=== PATIENT | female | born 1970 | race Hispanic/Latino ===

== ENCOUNTER 2019-03-12 19:39 | Emergency (ER) | payer OTHER ==
--- OUTSIDE RECORDS SUMMARY | 2019-03-12 19:41 | XMS REPORT ---
:1970 [facility] Address [address] [place] [address] Care Team Providers Name Role Phone CARIN GONZALEZ Unavailable Unavailable Problems This patient has no known problems. Allergies, Adverse Reactions, Alerts This patient has no known allergies or adverse reactions. Medications This patient has no known medications. Results Test Description Test Time Test Comments Text Results Atomic Results Result Comments GLUCOMETER GLUCOSE- LAB USE ONLY 2017-03-16 09:37:00 Test Item Value Reference Range Comments GLUCOMETER (test code=GMG) 112 mg/dL 70-100 XR RENZO W CONTRAST*HSE*2017-03-14 13:37:49FluoroscopyLocation Code: [id number] HISTORY: Back painComments: Fluoroscopy was provided during lumbar epidural steroid injection.Approximately fluoroscopy time was 22.3 seconds. 1 images were obtained.IMPRESSION: Fluoroscopy services provided. Please see operative report for fulldetails.XR RENZO W CONTRAST*HSE*2017-02-23 12:12: 37FluoroscopyLocation Code: [id number] HISTORY: Back painComments: Fluoroscopy was provided during L4 and L5 interlaminar epiduralsteroid injection. Approximately fluoroscopy time was 3.5 seconds. 1 imageswere obtained.IMPRESSION : Fluoroscopy services provided. Please see operative report for fulldetails.
--- NOTE | 2019-03-12 20:17 | EDPHYS ---
Physician Documentation [facility] Name: Hazel Ling Age: 49 yrs Sex: Female : 1970 Arrival Date: 03/12/2019 Time: 19:42 Bed 28 Private MD: Ariel Bardales ED Physician Alberto Syed HPI: 03/12 21:02 This 49 yrs old Female presents to ER via Ambulatory with complaints of Back snw Pain. 21:02 The patient presents with pain that is chronic, with no known mechanism of injury. The snw symptoms are located in the low back. Onset: The symptoms/episode began/occurred gradually, and became worse and became persistent. The pain radiates to the buttocks. The problem was sustained insurance changes and pt did not get T#3 rx. Severity of symptoms: At their worst the symptoms were moderate. The patient has experienced similar episodes in the past, chronically. It is unknown whether or not the patient has recently seen a physician. c/o lower back tightness and spasm. 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 LMP N/A - Hysterectomy lp1 Historical: - Allergies: 20:04 No Known Allergies; lp1 - Home Meds: 20:04 metformin 1,000 mg Oral tab 1 tab 2 times per day [Active]; glimepiride 4 mg Oral tab 1 lp1 tab once daily [Active]; gabapentin 800 mg oral tab 1 tab 3 times per day [Active]; naproxen 500 mg Oral tab 1 tab 2 times per day [Active]; Cymbalta 30 mg oral cpDR 1 cap 2 times per day [Active]; acetaminophen-codeine 300-30 mg Oral tab [Active]; losartan 25 mg oral tab 1 tab once daily [Active]; Symbicort 80-4.5 mcg/actuation inhalation HFAA [Active]; - PMHx: 20:04 Diabetes - IDDM; Asthma; Back pain; Hypertension; lp1 - PSHx: 20:04 ; Tonsillectomy; Cholecystectomy; foot surgery; Hysterectomy; lp1 - Immunization history:: Adult Immunizations up to date. - Social history:: Smoking status: Patient/guardian denies using tobacco. - Ebola Screening: : No symptoms or risks identified at this time. ROS: 21:01 Constitutional: Negative for fever, chills, and weight loss, Eyes: Negative for injury, snw pain, redness, and discharge, ENT: Negative for injury, pain, and discharge, Neck: Negative for injury, pain, and swelling, Cardiovascular: Negative for chest pain, palpitations, and edema, Respiratory: Negative for shortness of breath, cough, wheezing, and pleuritic chest pain, Abdomen/GI: Negative for abdominal pain, nausea, vomiting, diarrhea, and constipation, : Negative for injury, bleeding, discharge, and swelling, MS/Extremity: Negative for injury and deformity, Skin: Negative for injury, rash, and discoloration, Neuro: Negative for headache, weakness, numbness, tingling, and seizure. 21:01 Back: Positive for decreased range of motion, pain with movement, radiated pain, of the low back area, lower extremities with shooting pain, denies difficulty urinating. Exam: 21:00 Constitutional: This is a well developed, well nourished patient who is awake, alert, snw and in no acute distress. Head/Face: Normocephalic, atraumatic. Eyes: Pupils equal round and reactive to light, extra-ocular motions intact. Lids and lashes normal. Conjunctiva and sclera are non-icteric and not injected. Cornea within normal limits. Periorbital areas with no swelling, redness, or edema. ENT: Nares patent. No nasal discharge, no septal abnormalities noted. Tympanic membranes are normal and external auditory canals are clear. Oropharynx with no redness, swelling, or masses, exudates, or evidence of obstruction, uvula midline. Mucous membranes moist. Neck: Trachea midline, no thyromegaly or masses palpated, and no cervical lymphadenopathy. Supple, full range of motion without nuchal rigidity, or vertebral point tenderness. No Meningismus. Chest/axilla: Normal chest wall appearance and motion. Nontender with no deformity. No lesions are appreciated. Cardiovascular: Regular rate and rhythm with a normal S1 and S2. No gallops, murmurs, or rubs. Normal PMI, no JVD. No pulse deficits. Respiratory: Lungs have equal breath sounds bilaterally, clear to auscultation and percussion. No rales, rhonchi or wheezes noted. No increased work of breathing, no retractions or nasal flaring. Abdomen/GI: Soft, non-tender, with normal bowel sounds. No distension or tympany. No guarding or rebound. No evidence of tenderness throughout. Skin: Warm, dry with normal turgor. Normal color with no rashes, no lesions, and no evidence of cellulitis. MS/ Extremity: Pulses equal, no cyanosis. Neurovascular intact. Full, normal range of motion. Neuro: Awake and alert, GCS 15, oriented to person, place, time, and situation. Cranial nerves II-XII grossly intact. Motor strength 5/5 in all extremities. Sensory grossly intact. Cerebellar exam normal. Normal gait. 21:00 Back: pain, that is moderate, ROM is normal, normal spinal alignment noted, CVA tenderness, is absent, vertebral tenderness, is not appreciated, muscle spasm, is appreciated in the low back area. 21:02 Neuro: Exam negative for acute changes. snw Vital Signs: 20:01 BP 162 / 91; Pulse 81; Resp 18; Temp 98.2(O); Pulse Ox 99% on R/A; Weight 77.11 kg; lp1 Height 5 ft. 0 in. (152.40 cm); Pain 10/; 20:01 Body Mass Index 33.20 (77.11 kg, 152.40 cm) lp1 MDM: 20:10 Patient medically screened. snw 21:01 Data reviewed: vital signs, nurses notes. Data interpreted: Pulse oximetry: on room air snw is 99 %. Interpretation: normal. Counseling: I had a detailed discussion with the patient and/or guardian regarding: the historical points, exam findings, and any diagnostic results supporting the discharge/admit diagnosis, the need for outpatient follow up, to return to the emergency department if symptoms worsen or persist or if there are any questions or concerns that arise at home. Special discussion: I have referred the patient to see his PCP for further evaluation of high blood pressure. Based on the history and exam findings, there is no indication for further emergent testing or inpatient evaluation. I discussed with the patient/guardian the need to see the back specialist for further evaluation of the symptoms. 03/12 20:11 Order name: Urine Culture snw 03/12 20:11 Order name: Urine Microscopic Only snw 03/12 20:11 Order name: FSBS; Complete Time: 20:36 snw 03/12 20:34 Order name: Urine Dipstick--Ancillary (enter results) ar5 03/12 20:11 Order name: Urine Dipstick-Ancillary (obtain specimen); Complete Time: 20:36 snw Administered Medications: 20:45 Drug: [place] 5 mg-325 mg 1 tabs Route: PO; mg2 20:46 Follow up: Response: No adverse reaction; Medication administered at discharge. mg2 20:45 Drug: Valium 5 mg Route: PO; mg2 20:46 Follow up: Response: No adverse reaction; Medication administered at discharge. mg2 Point of Care Testing: Blood Glucose: 20:37 Blood Glucose: 212 mg/dL; mg2 Ranges: Critical Glucose Levels:Adult <50 mg/dl or >400 mg/dl <40 mg/dl or >180 mg/dl Disposition: 03/13 01:33 Co-signature as Attending Physician, Alberto Syed MD. Disposition: 03/12/19 20:16 Discharged to Home. Impression: Low back pain. - Condition is Stable. - Discharge Instructions: Back Pain, Adult, Hypertension, Musculoskeletal Pain, Cryotherapy, Rehydration, Adult, Heat Therapy. - Prescriptions for Mobic 7.5 mg Oral Tablet - take 1 tablet by ORAL route once daily take with food; 20 tablet. orphenadrine citrate 100 mg Oral Tablet Sustained Release - take 1 tablet by ORAL route 2 times per day As needed; 20 tablet. - Medication Reconciliation Form, Thank You Letter, Antibiotic Education, Prescription Opioid Use form. - Follow up: Ariel Bardales MD; When: 2 - 3 days; Reason: Recheck today's complaints, Continuance of care, Re-evaluation by your physician. Follow up: Emergency Department; When: As needed; Reason: Worsening of condition. - Problem is an acute exacerbation. - Symptoms have worsened. Signatures: Dispatcher [employer] EDMS Rhonda Adkins, GERARDO-C SPECIALTY TRANSFORMER ASSEMBLER-Csnw Christie Thomason RN RN lp1 Alberto Syed MD MD John Galvez RN RN mg2 Corrections: (The following items were deleted from the chart) 03/12 20:17 20:16 03/12/2019 20:16 Discharged to Home. Impression: Low back pain. Condition is snw Stable. Forms are Medication Reconciliation Form, Thank You Letter, Antibiotic Education, Prescription Opioid Use. Follow up: Ariel Bardales; When: 2 - 3 days; Reason: Recheck today's complaints, Continuance of care, Re-evaluation by your physician. Follow up: Emergency Department; When: As needed; Reason: Worsening of condition. snw 20:48 20:17 03/12/2019 20:16 Discharged to Home. Impression: Low back pain. Condition is mg2 Stable. Forms are Medication Reconciliation Form, Thank You Letter, Antibiotic Education, Prescription Opioid Use. Follow up: Ariel Bardales; When: 2 - 3 days; Reason: Recheck today's complaints, Continuance of care, Re-evaluation by your physician. Follow up: Emergency Department; When: As needed; Reason: Worsening of condition. Problem is an acute exacerbation. Symptoms have worsened. snw
--- NOTE | 2019-03-12 20:17 | ER ---
Nurse's Notes [facility] Name: Hazel Ling Age: 49 yrs Sex: Female : 1970 Arrival Date: 03/12/2019 Time: 19:42 Bed 28 Private MD: Ariel Bardales Diagnosis: Low back pain Presentation: 03/12 19:59 Presenting complaint: Patient states: "I have herniated discs and my back has been lp1 getting worse since Tuesday"; Denies any trauma; No relief with heating pads and medication at home; Back pain radiating to legs and feet. Transition of care: patient was not received from another setting of care. Onset of symptoms was March 09, 2019. Risk Assessment: Do you want to hurt yourself or someone else? Patient reports no desire to harm self or others. Initial Sepsis Screen: Does the patient meet any 2 criteria? No. Patient's initial sepsis screen is negative. Does the patient have a suspected source of infection? No. Patient's initial sepsis screen is negative. Care prior to arrival: None. 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:01 LMP N/A - Hysterectomy lp1 Historical: - Allergies: 20:04 No Known Allergies; lp1 - Home Meds: 20:04 metformin 1,000 mg Oral tab 1 tab 2 times per day [Active]; glimepiride 4 mg Oral tab 1 lp1 tab once daily [Active]; gabapentin 800 mg oral tab 1 tab 3 times per day [Active]; naproxen 500 mg Oral tab 1 tab 2 times per day [Active]; Cymbalta 30 mg oral cpDR 1 cap 2 times per day [Active]; acetaminophen-codeine 300-30 mg Oral tab [Active]; losartan 25 mg oral tab 1 tab once daily [Active]; Symbicort 80-4.5 mcg/actuation inhalation HFAA [Active]; - PMHx: 20:04 Diabetes - IDDM; Asthma; Back pain; Hypertension; lp1 - PSHx: 20:04 ; Tonsillectomy; Cholecystectomy; foot surgery; Hysterectomy; lp1 - Immunization history:: Adult Immunizations up to date. - Social history:: Smoking status: Patient/guardian denies using tobacco. - Ebola Screening: : No symptoms or risks identified at this time. Screenin:04 Abuse screen: Denies threats or abuse. Denies injuries from another. Nutritional lp1 screening: No deficits noted. Tuberculosis screening: No symptoms or risk factors identified. 20:48 Fall Risk None identified. mg2 Assessment: 20:46 General: Appears in no apparent distress. comfortable, Behavior is calm, cooperative. mg2 Pain: Complains of pain in back Pain does not radiate. Pain currently is 5 out of 10 on a pain scale. Quality of pain is described as aching, Pain began gradually, Is intermittent. Neuro: Level of Consciousness is awake, alert, obeys commands, Oriented to person, place, time, situation. Cardiovascular: Capillary refill < 3 seconds Patient's skin is warm and dry. Respiratory: Airway is patent Respiratory effort is even, unlabored, Respiratory pattern is regular, symmetrical. GI: No signs and/or symptoms were reported involving the gastrointestinal system. : No signs and/or symptoms were reported regarding the genitourinary system. EENT: No signs and/or symptoms were reported regarding the EENT system. Derm: Skin is intact, is healthy with good turgor, Skin is pink, warm \\T\\ dry. normal. Musculoskeletal: Circulation, motion, and sensation intact. Capillary refill < 3 seconds, Reports pain in back. Vital Signs: 20:01 BP 162 / 91; Pulse 81; Resp 18; Temp 98.2(O); Pulse Ox 99% on R/A; Weight 77.11 kg; lp1 Height 5 ft. 0 in. (152.40 cm); Pain 10/10; 20:01 Body Mass Index 33.20 (77.11 kg, 152.40 cm) lp1 ED Course: 19:42 Patient arrived in ED. am2 19:42 Ariel Bardales MD is Private Physician. am2 20:00 [facility]C [facility] snw 20:00 Alberto Syed MD is Attending Physician. snw 20:01 Triage completed. lp1 20:01 Arm band placed on right wrist. lp1 20:16 Ariel Bardales MD is Referral Physician. snw 20:26 John Galvez RN is Primary Nurse. mg2 20:47 Patient has correct armband on for positive identification. Pulse ox on. NIBP on. mg2 20:47 No provider procedures requiring assistance completed. Patient did not have IV access mg2 during this emergency room visit. Patient maintains SpO2 saturation greater than 95% on room air. Administered Medications: 20:45 Drug: [place] 5 mg-325 mg 1 tabs Route: PO; mg2 20:46 Follow up: Response: No adverse reaction; Medication administered at discharge. mg2 20:45 Drug: Valium 5 mg Route: PO; mg2 20:46 Follow up: Response: No adverse reaction; Medication administered at discharge. mg2 Point of Care Testing: Blood Glucose: 20:37 Blood Glucose: 212 mg/dL; mg2 Ranges: Outcome: 20:16 Discharge ordered by MD. snw 20:48 Discharged to home via wheelchair, with family. mg2 20:48 Condition: good 20:48 Discharge instructions given to patient, family, Instructed on discharge instructions, follow up and referral plans. medication usage, Demonstrated understanding of instructions, follow-up care, medications, Prescriptions given X 2. 20:48 Patient left the ED. mg2 Signatures: Rhonda Adkins, HANDLE SANDER OPERATOR-C HANDLE SANDER OPERATOR-Csnw Christie Thomason, RN RN lp1 Gisselle Cabezas am2 John Galvez RN RN mg2
[2019-03-12] MEDS ORDERED: HYDROCODONE/APAP 5/325 MG TAB ONE (20:48)
[2019-03-12] MEDS ORDERED: DIAZEPAM 5 MG TABLET ONE (20:48)
[2019-03-12 20:49] LABS: Urine Blood NEGATIVE (NEG); Urine Glucose 2+ (NEG); Urine Protein NEGATIVE (NEG); Urine Specific Gravity <1.005 (1.005-1.030)
[2019-03-12 21:09] LABS: Urine Culture Reflex Order NOT NEEDED
[2019-03-12 21:10] LABS: Urine Bacteria <20 /HPF (<20); Urine RBC NONE SEEN /HPF (NONE SEEN)
== END 2019-03-12 20:48 | disposition home or self-care (01) ==
LOC: ER 19:39
DX: M54.5 Low back pain (principal); E11.9 Type 2 diabetes mellitus without complications; I10 Essential (primary) hypertension; J45.909 Unspecified asthma, uncomplicated; Z79.4 Long term (current) use of insulin
CPT/HCPCS: 81003; 81015; 82962; 87086; 87088; 99284